=== PATIENT | female | born 1935 | race Caucasian/White ===

== ENCOUNTER 2017-09-24 09:58 | Observation (INO) | payer MEDICARE, OTHER ==
[2017-09-24] MEDS ORDERED: ASPIRIN 81 MG TABLET, CHEWABLE PO ONE (10:02)
[2017-09-24 10:22] LABS: ABSOLUTE EOSINOPHILS # (AUTO) 0.1 10^3/uL (0.0-0.6); ABSOLUTE LYMPHOCYTES (AUTO) 2.7 10^3/uL (0.5-4.7); ABSOLUTE MONOCYTES (AUTO) 0.9 10^3/uL (0.1-1.4); ABSOLUTE NEUT (AUTO) 5.8 10^3/uL (1.7-8.2); BASOPHILS % (AUTO) 0.4 % (0-2); EOSINOPHILS % (AUTO) 0.6 % (0-6); HEMATOCRIT 39.3 % (36.0-47.0); HEMOGLOBIN 13.3 g/dL (12.0-15.5); LYMPHOCYTES % (AUTO) 28.3 % (13-45); MEAN CORPUSCULAR HEMOGLOBIN 28.5 pg (27.0-33.4); MEAN CORPUSCULAR HGB CONC 33.9 g/dL (32.0-36.0); MEAN CORPUSCULAR VOLUME 84 fl (80-97); MONOCYTES % (AUTO) 9.1 % (3-13); PLATELET COUNT 419 10^3/uL (150-450); RED BLOOD COUNT 4.68 10^6/uL (3.72-5.28); RED CELL DISTRIBUTION WIDTH 14.1 % (11.5-14.0); SEGMENTED NEUTROPHILS % (AUTO) 61.6 % (42-78); TOTAL CELLS COUNTED % (AUTO) 100 %; WHITE BLOOD COUNT 9.4 10^3/uL (4.0-10.5)
[2017-09-24 10:35] LABS: ALANINE AMINOTRANSFERASE 31 U/L (9-52); ALBUMIN 4.5 g/dL (3.5-5.0); ALKALINE PHOSPHATASE 121 U/L (38-126); ANION GAP 10 (5-19); ASPARTATE AMINO TRANSFERASE 33 U/L (14-36); BILIRUBIN,DIRECT 0.2 mg/dL (0.0-0.4); BILIRUBIN,TOTAL 0.8 mg/dL (0.2-1.3); BLOOD UREA NITROGEN 12 mg/dL (7-20); CALCIUM 9.8 mg/dL (8.4-10.2); CARBON DIOXIDE 29 mmol/L (22-30); CHLORIDE 93 mmol/L (98-107); CREATINE KINASE 35 U/L (30-135); GLUCOSE 117 mg/dL (75-110); LIPASE 94.6 U/L (23-300); POTASSIUM 4.1 mmol/L (3.6-5.0); SODIUM 132.4 mmol/L (137-145)
[2017-09-24 10:46] LABS: CREATINE KINASE MB 1.19 ng/mL (<4.55)
[2017-09-24 10:48] LABS: TROPONIN I < 0.012 ng/mL
[2017-09-24 10:49] LABS: APPEARANCE,URINE CLEAR; COLOR,URINE STRAW
[2017-09-24 10:50] LABS: BILIRUBIN,URINE NEGATIVE (NEGATIVE); GLUCOSE, URINE NEGATIVE (NEGATIVE); KETONES,URINE NEGATIVE (NEGATIVE); LEUKOCYTE ESTERASE,URINE NEGATIVE (NEGATIVE); NITRITE,URINE NEGATIVE (NEGATIVE); PROTEIN,URINE 30 mg/dL (NEGATIVE); UROBILINOGEN,URINE NEGATIVE mg/dL (<2.0)
--- NOTE | 2017-09-24 11:28 | RADIOLOGY REPORT (SQ) ---
EXAM DESCRIPTION: CHEST SINGLE VIEW COMPLETED DATE/TIME: 09/24/2017 11:02 am REASON FOR STUDY: cp COMPARISON: Chest film 10/29/2010, 01/09/2012 CT angio chest 10/30/2010 EXAM PARAMETERS: NUMBER OF VIEWS: One view. TECHNIQUE: Single frontal radiographic view of the chest acquired. RADIATION DOSE: NA LIMITATIONS: None. FINDINGS: LUNGS AND PLEURA: Lungs are hyperlucent from obstructive lung disease. Stable scarring piña perior segment left lower lobe. No pleural effusion. No pneumothorax. MEDIASTINUM AND HILAR STRUCTURES: No masses. Contour normal. HEART AND VASCULAR STRUCTURES: Heart normal in size. Normal vasculature. BONES: No acute findings. HARDWARE: Clips right axilla post right mastectomy OTHER: No other significant finding. IMPRESSION: No acute changes TECHNICAL DOCUMENTATION: JOB ID: [id number] [employer]- All Rights Reserved Reading location - IP/workstation name: [email or web address]
--- NOTE | 2017-09-24 12:14 | RADIOLOGY REPORT (SQ) ---
EXAM DESCRIPTION: CT HEAD WITHOUT COMPLETED DATE/TIME: 09/24/2017 11:48 am REASON FOR STUDY: n/t left arm COMPARISON: None. TECHNIQUE: Axial images acquired through the brain without intravenous contrast. Images reviewed wi th bone, brain and subdural windows. Images stored on PACS. All CT scanners at this facility use dose modulation, iterative reconstruction, and/or weight based d osing when appropriate to reduce radiation dose to as low as reasonably achievable (ALARA). [facility]: Dose Right [facility]: CareDose [facility]: Dose Right [facility]: Teradose 4D [facility]: Smart Outitude RADIATION DOSE: CT Rad equipment meets quality standard of care and radiation dose reduction techniq ues were employed. CTDIvol: 53.2 mGy. DLP: 1017 mGy-cm. mGy. LIMITATIONS: None. FINDINGS: VENTRICLES: Normal size and contour. CEREBRUM: No masses. No hemorrhage. No midline shift. No evidence for acute infarction. Extensive areas of low density in the white matter most likely chronic small vessel ischemic changes. CEREBELLUM: No masses. No hemorrhage. No alteration of density. No evidence for acute infarction. EXTRAAXIAL SPACES: No fluid collections. No masses. ORBITS AND GLOBE: No intra- or extraconal masses. Normal contour of globe without masses. CALVARIUM: No fracture. PARANASAL SINUSES: No fluid or mucosal thickening. SOFT TISSUES: No mass or hematoma. OTHER: No other significant finding. IMPRESSION: MICROVASCULAR ISCHEMIA. NO ACUTE IMAGING FINDINGS IN THE BRAIN. EVIDENCE OF ACUTE STROKE: NO. COMMENT: Quality ID # [id number]: Final reports with documentation of one or more dose reduction techniques (e.g., Automated exposure control, adjustment of the mA and/or kV according to patient size, use of iterative reconstruction technique) TECHNICAL DOCUMENTATION: JOB ID: [id number] [employer]- All Rights Reserved Reading location - IP/workstation name: [email or web address]
--- NOTE | 2017-09-24 12:35 | ER Document Report ---
ED Cardiac - General Chief Complaint: Epigastric Pain Stated Complaint: LEFT ARM PAIN Time Seen by Provider: 09/24/17 10:01 Mode of Arrival: Medic Information source: Patient Notes: Patient is 81-year-old female who presents to the ER today for 1 day of chest pain, left arm numbness, tingling, pain. Patient has a history of hypertension but has never had a heart attack or stroke. Does not smoke. Patient denies any shortness of breath or nausea with these symptoms. Patient has no history of A. fib. She does take 2 different blood pressure medications, diltiazem and valsartan. Patient does not have a security ambassador. One sublingual nitroglycerin and 324 of aspirin completely relieved chest pain on the ambulance. She denies numbness or tingling anywhere else, headache, blurred vision, slurred speech or facial droop. TRAVEL OUTSIDE OF THE [place] IN LAST 30 DAYS: No - Related Data Allergies/Adverse Reactions: chlorzoxazone [From Parafon Forte] Allergy (Intermediate, Verified 09/24/17 10: 36) elevated BP Sulfa (Sulfonamide Antibiotics) Allergy (Intermediate, Verified 09/24/17 10:36) rash atorvastatin calcium [From Lipitor] Allergy (Verified 09/24/17 10:36) latex [Latex] Allergy (Verified 09/24/17 10:36) SKIN RED Past Medical History - General Information source: Patient - Social History Smoking Status: Former Smoker Chew tobacco use (# tins/day): No Frequency of alcohol use: None Drug Abuse: None Family History: Arthritis, CAD, DM, Hyperlipidemia, Hypertension, Malignancy Patient has suicidal ideation: No Patient has homicidal ideation: No - Past Medical History Cardiac Medical History: Reports: Hx Hypercholesterolemia, Hx Hypertension Denies: Hx Coronary Artery Disease, Hx Heart Attack Pulmonary Medical History: Denies: Hx Asthma, Hx Bronchitis, Hx COPD, Hx Pneumonia Neurological Medical History: Denies: Hx Cerebrovascular Accident, Hx Seizures Renal/ Medical History: Denies: Hx Peritoneal Dialysis Malignancy Medical History: Reports: Hx Breast Cancer, Hx Lung Cancer GI Medical History: Reports: Hx Gastroesophageal Reflux Disease, Hx Ulcer - YEARS AGO. 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 Denies: Hx Hysterectomy , Hx Open Heart Surgery, Hx Pacemaker - Immunizations Immunizations up to date: No Hx Diphtheria, Pertussis, Tetanus Vaccination: No - unknown Hx Pneumococcal Vaccination: 04/30/06 Review of Systems - Review of Systems Constitutional: No symptoms reported EENT: No symptoms reported Cardiovascular: See HPI Respiratory: No symptoms reported Gastrointestinal: No symptoms reported Genitourinary: No symptoms reported Female Genitourinary: No symptoms reported Musculoskeletal: No symptoms reported Skin: No symptoms reported Hematologic/Lymphatic: No symptoms reported Neurological/Psychological: See HPI Physical Exam - Vital signs Vitals: Resp BP Pulse Ox 21 H 167/71 H 96 09/24/17 10:19 09/24/17 10:19 09/24/17 10:19 - Notes Notes: PHYSICAL EXAMINATION: GENERAL: Well-appearing, smiling and in no acute distress. HEAD: Atraumatic, normocephalic. EYES: Pupils equal round and reactive to light, extraocular movements intact, sclera anicteric, conjunctiva are normal. ENT: ear canals without erythema or foreign body, TMs pearly escalante with good bony landmarks, nares patent, oropharynx clear without exudates. Moist mucous membranes. NECK: Normal range of motion, supple without lymphadenopathy LUNGS: CTAB and equal. No wheezes rales or rhonchi. HEART: Chest nontender to palpation, regular rate and rhythm without murmurs ABDOMEN: Soft, no tenderness. No guarding, no rebound BACK: no vertebral tenderness, normal ROM GI/: no CVA tenderness EXTREMITIES: Normal range of motion, no pitting edema. No cyanosis. NEUROLOGICAL: Cranial nerves grossly intact. Normal sensory/motor exams. Good and equal strength bilaterally, Kernig and Brudzinski's signs negative, Romberg' s test normal, normal heel to ring testing PSYCH: Normal mood, normal affect. SKIN: Warm, Dry, normal turgor, no rashes or lesions noted Course - Re-evaluation Re-evalutation: 09/24/17 12:34 Troponin normal, EKG normal sinus rhythm without evidence of ischemia, CAT scan of the head reveals chronic microvascular ischemia but no acute stroke or changes, other lab work unremarkable today. Patient has been chest pain-free the entire time here in the emergency department. I did admit her for chest pain rule out and to be seen by cardiology to Sandra Ahn NP hospitalist at this time. 09/24/17 14:21 Patient has changed her mind and does not want to stay in the hospital, I tried to advise her otherwise but she will not be convinced. Patient wants to go home to take care of her . Second troponin was drawn at this time also normal. Patient will sign AMA. - Vital Signs Vital signs: Temp Pulse Resp BP Pulse Ox 97.7 F 17 176/71 H 96 09/24/17 10:36 09/24/17 10:31 09/24/17 10:31 09/24/17 10:31 - Laboratory Result Diagrams: 09/24/17 09:46 09/24/17 09:46 Laboratory results interpreted by me: 09/24/17 09/24/17 09/24/17 09:46 09:46 10:30 RDW 14.1 H Sodium 132.4 L Chloride 93 L Glucose 117 H Urine Protein 30 H Urine Ascorbic Acid 20 H Discharge - Discharge Clinical Impression: Left arm numbness Chest pain Qualifiers: Chest pain type: unspecified Qualified Code(s): R07.9 - Chest pain, unspecified Condition: Stable Disposition: AGAINST MEDICAL ADVICE
[2017-09-24] MEDS ORDERED: MORPHINE SULFATE 10 MG/ML INJ IV PRN (13:01)
[2017-09-24] MEDS ORDERED: NITROGLYCERIN 0.4 MG/TAB 25 TAB/BOTTLE SL PRN (13:01)
[2017-09-24] MEDS ORDERED: MAG HYDROX/AL HYDROX/SIMETH SUSP 30 ML UDCUP PO PRN (13:01)
[2017-09-24] MEDS ORDERED: ONDANSETRON HCL INJ/PF 4 MG/2 ML SDV IV PRN (13:01)
--- NOTE | 2017-09-24 13:45 | EKG REPORT ---
SEVERITY:- NORMAL ECG - SINUS RHYTHM : Confirmed by: Joel Maza MD 24-Sep-2017 13:45:19
[2017-09-24 14:30] VITALS: BP 160/78
[2017-09-24] MEDS ORDERED: VITAMIN D3 PO SCH (18:00)
[2017-09-24] MEDS ORDERED: FAMOTIDINE 20 MG TABLET PO SCH (18:00)
[2017-09-24] MEDS ORDERED: CALCIUM CARBONATE PO SCH (18:00)
[2017-09-25] MEDS ORDERED: ASPIRIN 81 MG TABLET, ENT COATED PO SCH (10:00)
[2017-09-25] MEDS ORDERED: DOCUSATE SODIUM 100 MG CAPSULE PO SCH (10:00)
== END 2017-09-24 14:43 | disposition home or self-care (01) ==
LOC: ER 09:58 → EH 12:53
PROVIDERS: ADMIT Internal Medicine; ATTEND Internal Medicine
DX: R20.0 Anesthesia of skin (principal); R07.9 Chest pain, unspecified; R10.13 Epigastric pain; M79.602 Pain in left arm; I10 Essential (primary) hypertension; M19.90 Unspecified osteoarthritis, unspecified site; I67.82 Cerebral ischemia; R20.2 Paresthesia of skin; Z87.891 Personal history of nicotine dependence; Z53.21 Procedure and treatment not carried out due to patient leaving prior to being seen by health care provider; Z79.899 Other long term (current) drug therapy; Z82.49 Family history of ischemic heart disease and other diseases of the circulatory system; Z85.3 Personal history of malignant neoplasm of breast; Z85.118 Personal history of other malignant neoplasm of bronchus and lung; Z90.10 Acquired absence of unspecified breast and nipple; Z87.11 Personal history of peptic ulcer disease; Z90.49 Acquired absence of other specified parts of digestive tract; Z96.651 Presence of right artificial knee joint
CPT/HCPCS: 36415; 70450; 71045; 80053; 81001; 82550; 82553; 83690; 84484; 85025; 93005; 93010; 99284

== ENCOUNTER → 2018-12-06 | Outpatient (CLI) | payer MEDICARE, OTHER ==
--- NOTE | 2018-12-06 12:46 | RADIOLOGY REPORT (SQ) ---
EXAM DESCRIPTION: KNEE RIGHT 4 VIEWS COMPLETED DATE/TIME: 12/06/2018 10:41 am REASON FOR STUDY: CONTUSION OF RIGHT KNEE, INITIAL ENCOUNTER S80.01XA CONTUSION OF RIGHT KNEE, INIT IAL ENCOUNTER COMPARISON: Two views right knee 08/12/2010 NUMBER OF VIEWS: Four views. TECHNIQUE: AP, lateral, and both oblique radiographic images acquired of the right knee. LIMITATIONS: None. FINDINGS: MINERALIZATION: Osteopenic BONES: No acute fracture or malalignment. JOINT: No gross suprapatellar knee joint effusion. There is a total knee replacement with patellar r esurfacing. Tibial and femoral components are anchored with bone cement. No lucency around the hard cristobal worrisome for loosening. SOFT TISSUES: Minimal arterial vascular calcification popliteal artery and tibioperoneal trunk OTHER: No other significant finding. IMPRESSION: Post right total knee replacement in good alignment. No acute fracture. No knee joint effusion TECHNICAL DOCUMENTATION: JOB ID: [id number] [employer]- All Rights Reserved Reading location - IP/workstation name: [email or web address]
== END ==
LOC: OD 10:25
PROVIDERS: ATTEND Internal Medicine
DX: S80.01XA Contusion of right knee, initial encounter (principal); X58.XXXA Exposure to other specified factors, initial encounter; Z96.651 Presence of right artificial knee joint